=== PATIENT | female | born 1970 | race Caucasian/White ===

== ENCOUNTER 2018-04-01 14:39 | Outpatient (CLI) | payer MEDICAID ==
[2018-04-01 15:15] LABS: #Basophils 0.1 thou/uL (0.0-0.2); #Eosinphils 0.2 thou/uL (0.0-0.7); #Lymphocytes 1.4 thou/uL (1.20-3.40); #Neutrophils 6.9 thou/uL (1.40-6.50); %Basophils 0.7 % (0.0-1.0); %Eosinophils 2.2 % (0.0-10.0); %Lymphocytes 14.7 % (21.0-51.0); %Neutrophils 72.4 % (42.0-75.0); Hemoglobin 14.4 g/dL (12.0-16.0); Mean Corpuscular HGB CONC 33.9 g/dL (32.0-36.0); Mean Corpuscular Hemoglobin 30.1 pg (27.0-31.0); Mean Corpuscular Volume 88.8 fL (78.0-98.0); Mean Platelet Volume 6.6 fL (7.4-10.4); Platelet Count 311 thou/uL (130-400); RBC Distribution Width 13.4 % (11.5-14.5); Red Blood Cell (RBC) Count 4.79 mill/uL (4.20-5.40); White Blood Cell (WBC) Count 9.5 thou/uL (4.8-10.8)
[2018-04-01 15:40] LABS: Anion Gap 10 mmol/L (10-20); BUN (Urea Nitrogen) 10 mg/dL (7.0-18.7); Calc. Creatinine Clearance 0 mL/min (70-130); Calcium 9.2 mg/dL (7.8-10.44); Carbon Dioxide 24 mmol/L (22-29); Chloride 103 mmol/L (98-107); Estimated GFR-MDRD 87; Glucose 158 mg/dL (70-105); Potassium 4.1 mmol/L (3.5-5.1); Sodium 133 mmol/L (136-145)
== END 2018-04-01 14:40 | disposition home or self-care (01) ==
LOC: LABBT 14:39
PROVIDERS: ATTEND Specialist
DX: Z01.812 Encounter for preprocedural laboratory examination (principal); C50.911 Malignant neoplasm of unspecified site of right female breast
CPT/HCPCS: 80048; 85025

== ENCOUNTER 2018-04-06 06:50 | Day surgery (SDC) | payer MEDICAID ==
[2018-04-01 15:02] VITALS: BMI 66.0
[2018-04-06] MEDS ORDERED: Ketorolac Tromethamine 30 MG/ML VIAL ONE (09:11)
[2018-04-06] MEDS ORDERED: CEFAZOLIN 2 GM/50 ML BAG ONE (09:11)
--- NOTE | 2018-04-06 10:02 | NM ---
BREAST LYMPHOSCINTIGRAPHY: Date: 04/06/18 HISTORY: Malignant neoplasm of unspecified site of right female breast. TECHNIQUE: Planar imaging was performed following the right periareolar injection of 400 microcuries technetium- 99m filtered sulfur colloid in divided doses. FINDINGS: There is focally increased uptake in the right axilla. No uptake is seen in the internal mammary or l eft axillary lymph rafi chains or in the neck. IMPRESSION: [place] lymph node in the right axilla. POS: CHRISTIEN
[2018-04-06] MEDS ORDERED: Fentanyl 100 MCG/2 ML VIAL ONE ×2 (13:35→15:52)
[2018-04-06] MEDS ORDERED: Bupivacaine/Epinephrine 0.25% 30 ML VIAL ONE (14:45)
[2018-04-06] MEDS ORDERED: ePHEDrine/0.9% NaCl/PF SYRINGE 50 mg/10 ml ONE (15:00)
[2018-04-06] MEDS ORDERED: PROPOFOL 200 MG/20 ML VIAL ONE (15:00)
[2018-04-06] MEDS ORDERED: PHENYLEPHRINE-NS 100 MCG/ML 10 ML SYRINGE ONE (15:00)
[2018-04-06] MEDS ORDERED: Lidocaine 1% PF 5 ML VIAL ONE (15:00)
[2018-04-06] MEDS ORDERED: Ondansetron PF 4 MG/2 ML Vial ONE (16:13)
[2018-04-06] MEDS ORDERED: traMADol HCl 50 MG TAB ONE (17:04)
--- NOTE | 2018-04-06 17:06 | MMO ---
RIGHT SPECIMEN MAMMOGRAM 04/06/18 HISTORY: Mass right breast previously biopsied with placement of biopsy marker clip. The mass and clip were lo calized by Dr. Cool and surgical specimen was obtained and submitted for interpretation. FINDINGS/IMPRESSION: Single specimen mammogram is submitted for interpretation. The specimen contains a spiculated mass wi th biopsy marker clip in place. POS: ZAID
--- NOTE | 2018-04-07 15:13 | OP ---
DATE OF OPERATION: 04/06/2018 PREOPERATIVE DIAGNOSIS: Lobular carcinoma of the right breast. POSTOPERATIVE DIAGNOSIS: Lobular carcinoma of the right breast. OPERATION PERFORMED: Right breast ultrasound-guided needle localization intraoperatively, needle-loc alized right breast lumpectomy, right axillary sentinel lymph node biopsy. SURGEON: Sloan Cool M.D. ANESTHESIA: General endotracheal. INDICATIONS: The patient is a 47-year-old morbidly obese white female. She weighs approximately 370 pounds. She was found on recent mammography to have a concerning abnormality. Biopsy of this revea led an invasive lobular carcinoma. This is easily visible on ultrasound. She is taken to the operat ing room at this time for needle-localized lumpectomy and sentinel lymph node biopsy. DESCRIPTION OF OPERATION: Informed consent was obtained. The patient was taken to the operating larissa m where general anesthesia obtained with the patient in supine position. She has already undergone p reoperative lymphoscintigraphy. This revealed right axillary sentinel lymph node. Her right breast was infiltrated with 3 mL of isosulfan blue and massaged for 5 minutes. The breast and axilla were p repped with ChloraPrep and draped in sterile fashion. Attention was turned first to the axilla. Local anesthetic was infiltrated using 0.25% Marcaine with epinephrine. Her morbid obesity made identification of typical landmarks, a little more challenging . An incision was created in inferior aspect of her axilla and dissection was carried through skin a nd subcutaneous tissue. Neoprobe was utilized to identify areas of maximum radio intensity. There w as 1 dominant lymph node that actually appeared to be continuation of 2 lymph nodes that was deep wit hin the axilla against the chest wall. This was identified, dissected circumferentially, and passed off the field. This was densely dyed with blue dye and very radioactive. All investing lymphatics w ere divided between clamps and 3-0 silk ties. I then investigated the remainder of the axilla. Ther e was one additional area of radioactivity. This is close to the other lesion. This is also dissect ed and removed in a similar fashion. This certainly did have radioactivity, although not as much luis enrique e dye. Further inspection within the axilla revealed no other palpable abnormality nor any other sig nificant radioactivity. The wound was closed in layers with 3-0 and 4-0 Monocryl and Dermabond was p laced externally. Attention was turned to the right breast. The lesion was quickly identified at the 9 o'clock radian of the right breast, fairly close to the edge of the areola. The location of the malignancy was rio ed in a grid-like fashion on the skin and a localizing needle was placed in a medial to lateral fashi on using ultrasound guidance. Transverse skin incision was created incorporating the localizing wire. Dissection was carried throu gh skin and subcutaneous tissue. Careful dissection was carried out raising flaps in all directions in order to obtain a wide margin of what appeared to be normal tissue around the localizing guidewire . There was no evidence of visible or palpable abnormality in any of the margins and the specimen wa s removed intact. It was tagged with sutures for appropriate orientation and submitted to Radiology. Specimen mammography revealed the concerning spiculated lesion as well as the marking clip. It was then submitted to pathology. The wound was irrigated and all irrigant was aspirated. Hemostasis wa s meticulous with electrocautery. The wound was closed in layers with 3-0 and 4-0 Monocryl suture. Dermabond was placed externally. There were no complications with any of these procedures and blood loss was negligible. She was taken to recovery room in stable condition.
== END 2018-04-06 17:51 | disposition home or self-care (01) ==
LOC: SDC 06:50
PROVIDERS: ATTEND Specialist
PROC: 07B50ZX Excision of Right Axillary Lymphatic, Open Approach, Diagnostic (ICD-10-PCS; principal; 2018-04-06)
PROC: 0HBT0ZZ Excision of Right Breast, Open Approach (ICD-10-PCS; principal; 2018-04-06)
DX: C50.811 Malignant neoplasm of overlapping sites of right female breast (principal); C77.3 Secondary and unspecified malignant neoplasm of axilla and upper limb lymph nodes; F41.9 Anxiety disorder, unspecified; M19.90 Unspecified osteoarthritis, unspecified site; E11.9 Type 2 diabetes mellitus without complications; E66.01 Morbid (severe) obesity due to excess calories; Z68.44 Body mass index [BMI] 60.0-69.9, adult; Z17.0 Estrogen receptor positive status [ER+]; Z87.891 Personal history of nicotine dependence; Z79.84 Long term (current) use of oral hypoglycemic drugs; Z79.899 Other long term (current) drug therapy; Z88.8 Allergy status to other drugs, medicaments and biological substances
CPT/HCPCS: 36416; 76098; 78195; 88184; 88307; 88331; 88334; 96374; A9541; J0131; J1885; J2001; J2405; J2704; J3010

== ENCOUNTER 2018-04-29 09:40 | Day surgery (SDC) | payer MEDICAID ==
[2018-04-28 15:14] VITALS: BMI 58.5
[2018-04-29] MEDS ORDERED: CEFAZOLIN 2 GM/50 ML BAG ONE (11:11)
[2018-04-29] MEDS ORDERED: Bupivacaine/Epinephrine 0.25% 30 ML VIAL ONE ×2 (11:54→13:00)
[2018-04-29] MEDS ORDERED: ePHEDrine/0.9% NaCl/PF SYRINGE 50 mg/10 ml ONE (11:56)
[2018-04-29] MEDS ORDERED: PHENYLEPHRINE-NS 100 MCG/ML 10 ML SYRINGE ONE (11:56)
[2018-04-29] MEDS ORDERED: PROPOFOL 200 MG/20 ML VIAL ONE (11:56)
[2018-04-29] MEDS ORDERED: Lidocaine 1% PF 5 ML VIAL ONE (11:56)
[2018-04-29] MEDS ORDERED: Ondansetron PF 4 MG/2 ML Vial ONE (11:56)
[2018-04-29] MEDS ORDERED: Fentanyl 100 MCG/2 ML VIAL ONE ×2 (12:00→13:40)
[2018-04-29] MEDS ORDERED: Ketorolac Tromethamine 30 MG/ML VIAL ONE (13:40)
--- NOTE | 2018-05-01 19:40 | OP ---
DATE OF PROCEDURE: 04/29/2018 PREOPERATIVE DIAGNOSIS: Right breast lobular carcinoma with positive margins following lumpectomy. POSTOPERATIVE DIAGNOSIS: Right breast lobular carcinoma with positive margins following lumpectomy. OPERATION PERFORMED: Re-excision of inferior and posterior margins of prior lumpectomy cavity. ANESTHESIA: General endotracheal. INDICATIONS: The patient is a morbidly obese (370 pounds) 48-year-old white female. She underwent prior right breast lumpectomy and sentinel node biopsy. The operation was complicated by her obesity and the size of her breasts. Although, the lumpectomy appeared to be grossly free, there were a few microscopic areas of positive margins inferiorly and posteriorly, and she has returned to the operating room at this time for re-excision of these margins. DESCRIPTION OF OPERATION: Informed consent was obtained. The patient was taken to the operating room, where general anesthesia was obtained with the patient in supine position. Right breast was prepped with ChloraPrep and draped in sterile fashion. Local anesthetic was infiltrated using 0.25% Marcaine with epinephrine. Prior lumpectomy incision was reopened. Dissection was carried through skin and subcutaneous tissue. Entry was gained into the prior lumpectomy cavity and the seroma was aspirated. I then dissected about a 5-6 mm thickness of additional inferior margin. This was carried down underneath the lumpectomy cavity to include the entire posterior margin. This segment was removed from within the breast. It was divided into 2 segments, the inferior margin and the posterior margin. Each segment was carefully oriented with sutures for Pathology. These were then passed off the field. Meticulous hemostasis was obtained within the wound. This was a very deep wound given the size of this lumpectomy. Once hemostasis was obtained, the wound was carefully closed in layers using 3-0 Vicryl to approximate the top of the lumpectomy cavity and a running subcuticular suture of 4-0 Monocryl to approximate the skin edges. Dermabond was placed externally. There were no complications. The patient tolerated the procedure well and was taken to recovery room in stable condition. Job ID: [id number]
== END 2018-04-29 15:10 | disposition home or self-care (01) ==
LOC: SDC 09:40
PROVIDERS: ATTEND Specialist
PROC: 0HBT0ZZ Excision of Right Breast, Open Approach (ICD-10-PCS; principal; 2018-04-29)
PROC: 0HBT0ZX Excision of Right Breast, Open Approach, Diagnostic (ICD-10-PCS; principal; 2018-04-29)
DX: C50.911 Malignant neoplasm of unspecified site of right female breast (principal); E11.9 Type 2 diabetes mellitus without complications; Z87.891 Personal history of nicotine dependence; Z79.899 Other long term (current) drug therapy; Z88.6 Allergy status to analgesic agent
CPT/HCPCS: 88307; 96374; J0131; J1885; J2001; J2405; J2704; J3010

== ENCOUNTER 2018-05-03 10:16 | Emergency (ER) | payer MEDICAID | END 2018-05-03 11:13 | disposition left against medical advice (07) | LOC: ERS 10:16 | DX: Z53.21 Procedure and treatment not carried out due to patient leaving prior to being seen by health care provider (principal) ==

== ENCOUNTER → 2018-08-30 | Day surgery (SDC) | payer OTHER ==
[2018-08-27 10:11] VITALS: BMI 63.6
[2018-08-27 10:56] LABS: #Eosinphils 0.3 thou/uL (0.0-0.7); #Lymphocytes 1.1 thou/uL (1.20-3.40); #Monocytes 0.8 thou/uL (0.11-0.59); #Neutrophils 5.4 thou/uL (1.40-6.50); %Basophils 0.2 % (0.0-1.0); %Eosinophils 3.8 % (0.0-10.0); %Lymphocytes 14.3 % (21.0-51.0); %Monocytes 9.9 % (0.0-10.0); %Neutrophils 71.7 % (42.0-75.0); Hemoglobin 13.8 g/dL (12.0-16.0); Mean Corpuscular HGB CONC 35.1 g/dL (32.0-36.0); Mean Corpuscular Hemoglobin 31.4 pg (27.0-31.0); Mean Corpuscular Volume 89.5 fL (78.0-98.0); Mean Platelet Volume 6.6 fL (7.4-10.4); Platelet Count 291 thou/uL (130-400); RBC Distribution Width 14.2 % (11.5-14.5); Red Blood Cell (RBC) Count 4.39 mill/uL (4.20-5.40); White Blood Cell (WBC) Count 7.5 thou/uL (4.8-10.8)
[2018-08-27 11:15] LABS: ALT (SGPT) 15 U/L (8-55); AST (SGOT) 12 U/L (5-34); Albumin 3.8 g/dL (3.5-5.0); Alkaline Phosphatase 71 U/L (40-150); Anion Gap 12 mmol/L (10-20); BUN (Urea Nitrogen) 12 mg/dL (7.0-18.7); Bilirubin, Direct 0.2 mg/dL (0.1-0.3); Bilirubin, Total 0.5 mg/dL (0.2-1.2); Calc. Creatinine Clearance 257 mL/min (70-130); Carbon Dioxide 25 mmol/L (22-29); Chloride 103 mmol/L (98-107); Estimated GFR-MDRD 87; Globulin 3.3 g/dL (2.4-3.5); Glucose 205 mg/dL (70-105); Potassium 4.2 mmol/L (3.5-5.1); Protein, Total 7.1 g/dL (6.0-8.3); Sodium 136 mmol/L (136-145)
[2018-08-27 11:17] LABS: BHCG - Serum Negative (NEGATIVE); Pregs Control Background? CLEAR/WHITE (CLR/WHITE); Pregs Control Bar Appear? YES (CONTROL BAR)
[~2018-08-30] MED LIST: Fentanyl 100 MCG/2 ML VIAL ONE; Lidocaine 2% Jelly 5 ML TUBE ONE
== END ==
LOC: SDC 09:29
PROVIDERS: ATTEND Student in an Organized Health Care Education/Training Program
DX: N92.0 Excessive and frequent menstruation with regular cycle (principal); Z53.9 Procedure and treatment not carried out, unspecified reason; Z88.8 Allergy status to other drugs, medicaments and biological substances; Z79.810 Long term (current) use of selective estrogen receptor modulators (SERMs); Z79.84 Long term (current) use of oral hypoglycemic drugs; Z79.899 Other long term (current) drug therapy
CPT/HCPCS: 36415; 80053; 80076; 84703; 85025; 86850; 86900; 86901; J3010

== ENCOUNTER 2019-05-16 08:48 | Outpatient (CLI) | payer OTHER ==
--- NOTE | 2019-05-16 09:54 | MMO ---
Bilateral MAMMO Bilat Diag [facility]DI+YVETTE. CLINICAL HISTORY: Patient is 49 years old and is seen for diagnostic exam. The patient has the following family history of breast cancer: mother, malignant (generic) and Ultrasound guided core biopsy procedure revealed invasive lobular right breast carcinoma and lobular right breast carcinoma in 2018. The patient has a history of right Lumpectomy in 2018 - malignant, left Ultrasound Guided Core Biopsy in 2018 - benign and right Ultrasound Guided Core Biopsy in 2018 - malignant. VIEWS: The views performed were: bilateral craniocaudal with tomosynthesis; bilateral mediolateral oblique with tomosynthesis; and bilateral mediolateral with tomosynthesis. This study has been interpreted with the assistance of computer-aided detection. MAMMOGRAM FINDINGS: There are scattered fibroglandular densities. Post surgical changes noted on the right with associated skin thickening consistent with radiation therapy. Stable mass with associated post biopsy clip on the left. There are no suspicious masses, suspicious calcifications, or new areas of architectural distortion. IMPRESSION: THERE IS NO MAMMOGRAPHIC EVIDENCE OF MALIGNANCY. A ROUTINE FOLLOW-UP MAMMOGRAM IN 1 YEAR IS RECOMMENDED. THE RESULTS OF THIS EXAM WERE SENT TO THE PATIENT. ACR BI-RADS Category 2 - Benign finding MAMMOGRAPHY NOTE: 1. A negative mammogram report should not delay a biopsy if a dominant of clinically suspicious mass is present. 2. Approximately 10% to 15% of breast cancers are not detected by mammography. 3. Adenosis and dense breasts may obscure an underlying neoplasm. Reported by: SPRING FAYE MD Electonically Signed: [id number]
== END 2019-05-16 08:49 | disposition home or self-care (01) ==
LOC: BICMAMMO 08:48
PROVIDERS: ATTEND Internal Medicine Hematology & Oncology
DX: C50.411 Malignant neoplasm of upper-outer quadrant of right female breast (principal)
CPT/HCPCS: 77066; G0279

== ENCOUNTER 2019-07-17 17:13 | Emergency (ER) | payer OTHER ==
[2019-07-17] MEDS ORDERED: cefTRIAXone\\ROCEPHIN 1 GM VIAL ONE (18:48)
[2019-07-17] MEDS ORDERED: Ondansetron ODT 4 MG TAB ONE (18:48)
[2019-07-17] MEDS ORDERED: Lidocaine 1% PF 5 ML VIAL ONE (18:49)
== END 2019-07-17 19:03 | disposition home or self-care (01) ==
LOC: ERS 17:13
DX: K01.1 Impacted teeth (principal); K08.89 Other specified disorders of teeth and supporting structures; F41.9 Anxiety disorder, unspecified; E11.9 Type 2 diabetes mellitus without complications
CPT/HCPCS: 96372; 99283; J0696; J2001; Q0162

== ENCOUNTER 2019-11-07 13:16 | Emergency (ER) | payer OTHER ==
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
== END 2019-11-07 14:42 | disposition home or self-care (01) ==
LOC: ERS 13:16
DX: S61.216A Laceration without foreign body of right little finger without damage to nail, initial encounter (principal); S20.212A Contusion of left front wall of thorax, initial encounter; S20.211A Contusion of right front wall of thorax, initial encounter; F41.9 Anxiety disorder, unspecified; E11.9 Type 2 diabetes mellitus without complications; V89.2XXA Person injured in unspecified motor-vehicle accident, traffic, initial encounter
CPT/HCPCS: 12001; 71046

== ENCOUNTER 2019-12-23 13:43 | Outpatient (CLI) | payer OTHER ==
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
== END 2019-12-23 13:44 | disposition home or self-care (01) ==
LOC: BICMAMMO 13:43
PROVIDERS: ATTEND Internal Medicine Hematology & Oncology
DX: N63.10 Unspecified lump in the right breast, unspecified quadrant (principal); C50.411 Malignant neoplasm of upper-outer quadrant of right female breast
CPT/HCPCS: G0279

== ENCOUNTER 2020-05-28 08:31 | Outpatient (CLI) | payer OTHER ==
--- NOTE | 2020-05-28 09:10 | ULT ---
US Pelvic Transvag W Doppler History: Dysfunctional uterine bleeding Comparison: None. Findings: Real-time grayscale and color evaluation of the pelvis was performed transabdominal and tra nsvaginal approach. The ovaries are not well seen due to habitus. No significant free fluid in the pelvis. The endometrium measures 1.2 cm. No definite myometrial mass. Impression: Limited examination from habitus. Mildly thickened endometrium without definite myometria l mass.
--- NOTE | 2020-05-28 09:41 | MMO ---
Bilateral MAMMO Bilat Diag [facility]DI[facility]ETTE. CLINICAL HISTORY: Patient is 50 years old and is seen for diagnostic exam. The patient has the following family history of breast cancer: mother, malignant (generic) and Ultrasound guided core biopsy procedure revealed invasive lobular right breast carcinoma and lobular right breast carcinoma in 2018. The patient has a history of right Lumpectomy in 2018 - malignant, left Ultrasound Guided Core Biopsy in 2018 - benign and right Ultrasound Guided Core Biopsy in 2018 - malignant. VIEWS: The views performed were: bilateral mediolateral oblique with tomosynthesis; bilateral craniocaudal with tomosynthesis; bilateral mediolateral oblique; bilateral mediolateral; bilateral mediolateral with tomosynthesis; and left craniocaudal. FILMS COMPARED: The present examination has been compared to prior imaging studies performed at [facility] on 05/16/2019 and 12/23/2019. This study has been interpreted with the assistance of computer-aided detection. MAMMOGRAM FINDINGS: There are scattered fibroglandular densities. Finding 1: There are post operative changes seen in the right breast. Finding 2: Benign calcifications are noted bilaterally. There are no suspicious masses, suspicious calcifications, or new areas of architectural distortion. IMPRESSION: THERE IS NO MAMMOGRAPHIC EVIDENCE OF MALIGNANCY. A ROUTINE FOLLOW-UP MAMMOGRAM IN 1 YEAR IS RECOMMENDED. THE RESULTS OF THIS EXAM WERE SENT TO THE PATIENT. ACR BI-RADS Category 2 - Benign finding MAMMOGRAPHY NOTE: 1. A negative mammogram report should not delay a biopsy if a dominant of clinically suspicious mass is present. 2. Approximately 10% to 15% of breast cancers are not detected by mammography. 3. Adenosis and dense breasts may obscure an underlying neoplasm. Reported by: KRISTOPHER TINSLEY MD Electonically Signed: [id number]
== END 2020-05-28 08:32 | disposition home or self-care (01) ==
LOC: BICULT 08:31
PROVIDERS: ATTEND Internal Medicine Hematology & Oncology
DX: Z08 Encounter for follow-up examination after completed treatment for malignant neoplasm (principal); N93.8 Other specified abnormal uterine and vaginal bleeding; N63.10 Unspecified lump in the right breast, unspecified quadrant; R93.89 Abnormal findings on diagnostic imaging of other specified body structures; Z85.3 Personal history of malignant neoplasm of breast
CPT/HCPCS: 76856; 77066; G0279

== ENCOUNTER 2021-06-14 10:13 | Outpatient (CLI) | payer OTHER | END 2021-06-14 10:14 | disposition home or self-care (01) | LOC: BICMAMMO 10:13 | PROVIDERS: ATTEND Internal Medicine Hematology & Oncology | DX: Z08 Encounter for follow-up examination after completed treatment for malignant neoplasm (principal); Z85.3 Personal history of malignant neoplasm of breast | CPT/HCPCS: 77066; G0279 ==

== ENCOUNTER 2022-07-02 09:29 | Outpatient (CLI) | payer OTHER | END 2022-07-02 09:30 | disposition home or self-care (01) | LOC: BICMAMMO 09:29 | PROVIDERS: ATTEND Internal Medicine Hematology & Oncology | DX: C50.411 Malignant neoplasm of upper-outer quadrant of right female breast (principal); R92.8 Other abnormal and inconclusive findings on diagnostic imaging of breast; N63.20 Unspecified lump in the left breast, unspecified quadrant; Z98.890 Other specified postprocedural states; Z91.89 Other specified personal risk factors, not elsewhere classified; Z80.3 Family history of malignant neoplasm of breast | CPT/HCPCS: 77066; G0279 ==

== ENCOUNTER → 2023-01-01 | Day surgery (SDC) | payer OTHER ==
[2022-12-31 11:30] VITALS: BMI 57.0
== END ==
LOC: SDC 09:38
PROVIDERS: ATTEND Internal Medicine Gastroenterology
DX: Z12.11 Encounter for screening for malignant neoplasm of colon (principal); E11.9 Type 2 diabetes mellitus without complications; E78.00 Pure hypercholesterolemia, unspecified; C50.919 Malignant neoplasm of unspecified site of unspecified female breast; F41.8 Other specified anxiety disorders; Z79.84 Long term (current) use of oral hypoglycemic drugs; Z79.899 Other long term (current) drug therapy; Z80.0 Family history of malignant neoplasm of digestive organs; Z90.49 Acquired absence of other specified parts of digestive tract; Z88.8 Allergy status to other drugs, medicaments and biological substances; Z53.29 Procedure and treatment not carried out because of patient's decision for other reasons

== ENCOUNTER 2023-07-20 10:28 | Outpatient (CLI) | payer OTHER | END 2023-07-20 10:29 | disposition home or self-care (01) | LOC: BICMAMMO 10:28 | PROVIDERS: ATTEND Internal Medicine Hematology & Oncology | DX: Z12.31 Encounter for screening mammogram for malignant neoplasm of breast (principal); Z80.3 Family history of malignant neoplasm of breast; Z85.3 Personal history of malignant neoplasm of breast; Z91.89 Other specified personal risk factors, not elsewhere classified; Z98.890 Other specified postprocedural states | CPT/HCPCS: 77067 ==